=== PATIENT | female | born 1985 | race Caucasian/White ===

== ENCOUNTER 2022-03-04 10:00 | Day surgery (SDC) | payer OTHER ==
[~2022-03-04] VITALS: Ht 154.9 cm; Wt 51.8 kg
--- NOTE | ~2022-03-04 | OR ---
[facility] [address] [place] [address] [place], [place] [address] Draft DATE OF OPERATION: 03/04/2022 SURGEON: Aron Mancilla MD The patient of Dr. Mancilla. PREOPERATIVE DIAGNOSIS: Endometrial polyp, cervical stenosis. POSTOPERATIVE DIAGNOSIS: Endometrial polyp, cervical stenosis. PROCEDURE: Failed hysteroscopy. ANESTHESIA: MAC. ESTIMATED BLOOD LOSS: 10 mL. SPECIMEN: None. DRAINS: None. PACKING: None. FINDINGS: Normal vagina, cervix normal in appearance and normal-appearing external os, but the internal os was completely stenotic and no visible or palpable endocervical canal identifiable. COMPLICATIONS: Unable to enter endometrial cavity. DESCRIPTION OF PROCEDURE: The patient was brought to the operating room, placed supine position. After adequate PATIENT NAME: JUDY PACHECO OPERATIVE REPORT DATE OF : 81 REPORT #: [id number] PHYSICIAN: ARON MANCILLA MD PCP: BINU ZEPEDA MD REPORT IS CONFIDENTIAL AND NOT TO BE RELEASED WITHOUT AUTHORIZATION [facility] [address] [place] [address] [place], [place] [address] Draft MAC was obtained, the patient was brought to the operative room and after adequate MAC obtained, was placed in dorsal lithotomy position, prepped and draped in usual sterile fashion. Bladder was drained with straight catheterization and then the weighted speculum placed in the vagina. The anterior lip of the cervix was identified. Anterior lip of the cervix was grasped with an Allis clamp and then small cervical dilator was placed in the external os. An attempt was made to insert this through the internal os and the uterus. After several attempts, no palpable opening could be found, so the hysteroscope was placed in the external os of the cervix and attempt was made to dilate the cervix with water pressure from the hysteroscopy. The external os would dilate, but again the internal os would not dilate and even with the hysteroscope in the endocervical canal, no continuation of the endocervical canal could be seen. The hysteroscope was removed. A 2nd attempt made to find the opening with the small dilator. Again, no opening was found and the hysteroscope tried. Again 2nd time carefully examining the endocervical canal and attempting dilation with water pressure, but the cervical canal appeared to blindly end with no evidence of an opening. At this stage, the risk of perforation of the uterus seem to be increasing and so the procedure was terminated. All instruments were removed from the cervix. The cervix was observed and noted to have good hemostasis. All instruments were removed from the vagina. The patient tolerated the procedure well, went to recovery room in good condition. The sponge and instrument counts were correct at the end of procedure. MD REZA Mcgee/CLAYTON /[id number] Copies: ~ PATIENT NAME: JUDY PACHECO OPERATIVE REPORT DATE OF : 81 REPORT #: [id number] PHYSICIAN: ARON MANCILLA MD PCP: BINU ZEPEDA MD REPORT IS CONFIDENTIAL AND NOT TO BE RELEASED WITHOUT AUTHORIZATION
[~2022-03-04 10:00] MED LIST: MULTI VITAMIN1 EACH PO; OSTERA TABLET1 EACH PO
--- NOTE | 2022-03-04 13:42 | NUR ---
03/04/22 1342 Jonathan,Marii 1335 PT ARRIVED TO PACU ON 6L VIA MASK, PT ASLEEP AND RESP EVEN AND UNLABORED. 1340 O2 MASK REMOVED, O2 SAT 100%.
--- NOTE | 2022-03-04 15:33 | NUR ---
1515 RETURNED ON STRETCHER TO RM 3 FOR VOMITING, RETCHING CONTINUOUSLY. PHENERGAN 6.25 GIVEN JERRISep.
--- NOTE | 2022-03-04 16:01 | NUR ---
SLEPT A LITTLE AFTER PHENERGAN. NO RETCHING. UP TO BR. NO REWTCHING WANTS TO GO HOME.
== END 2022-03-04 16:05 | disposition home or self-care (01) ==
LOC: OPS 10:00 → DS 10:00 → OPS 11:45 → DS 13:00 → OPS 13:00
PROVIDERS: ATTEND General Practice
PROC: 0UJD8ZZ Inspection of Uterus and Cervix, Via Natural or Artificial Opening Endoscopic (ICD-10-PCS; 2022-03-04)
PROC: 0UDB8ZX Extraction of Endometrium, Via Natural or Artificial Opening Endoscopic, Diagnostic (ICD-10-PCS; principal; 2022-03-04 11:45)
DX: N84.0 Polyp of corpus uteri (principal); N88.2 Stricture and stenosis of cervix uteri; Z53.8 Procedure and treatment not carried out for other reasons
CPT/HCPCS: J1100; J1885; J2001; J2250; J2405; J2550; J2704; J7121

== ENCOUNTER 2023-04-07 11:01 | Inpatient (IN) | payer OTHER ==
[~2023-04-07] VITALS: Ht 152.4 cm; Wt 65.3 kg
--- NOTE | ~2023-04-07 | OR ---
[facility] [address] [place] [id number] Draft DATE OF OPERATION: 05/03/2023 SURGEON: Sharla Hawkins DO PREOPERATIVE DIAGNOSES: 1. Intrauterine at 39 weeks gestation. 2. Surrogate . 3. History of prior . 4. Advanced maternal age. POSTOPERATIVE DIAGNOSES: 1. Intrauterine at 39 weeks gestation. 2. Surrogate . 3. History of prior . 4. Advanced maternal age. PROCEDURE PERFORMED: Repeat low transverse delivery. ANESTHESIA: Spinal with postoperative TAP block. ELECTROMECHANICAL INSPECTOR: Aleiad Valderrama MD. COMPLICATIONS: None. ESTIMATED BLOOD LOSS: 500 mL. DRAINS: Carson to gravity. FINDINGS: Delivery of viable male in the RASHEEDA position via repeat low transverse incision. Normal uterus, tubes, and ovaries. Minimal scarring of the rectus to the fascia and no significant intra-abdominal or pelvic adhesions noted. INDICATIONS: PATIENT NAME: JUDY SPRINGER OPERATIVE REPORT DATE OF : 81 REPORT #: [id number] PHYSICIAN: SHARLA HAWKINS (DANO) PCP: BINU ZEPEDA MD REPORT IS CONFIDENTIAL AND NOT TO BE RELEASED WITHOUT AUTHORIZATION [facility] [address] [place] [id number] Draft Mrs. Tena Hermosillo is a very pleasant 37-year-old G2, P1 with IUP at 39 weeks gestation, who presents for repeat low transverse delivery. complicated by advanced maternal age, prior , and surrogate . The patient desires repeat low transverse delivery. Risks, benefits, and alternatives were discussed in detail with the patient. The patient understands and wished to proceed with the procedure. TECHNIQUE: The patient was taken to the operative room where a time-out was performed to confirm correct patient and correct procedure. Spinal anesthesia was adequately established and the patient was prepped in the supine position with a bump under the right hip. Carson catheter was inserted and the patient received 2 g of Ancef preoperatively per SCIP protocol. Heparin not indicated. Once spinal was noted to be adequate, a Pfannenstiel skin incision was made through the prior scar and carried down to the fascia. The fascia was nicked in the midline. Fascial incision was extended bilaterally using curved Harrison scissors. The fascia was grasped with Raina's, elevated and the underlying rectus dissected off bluntly and sharply. The rectus was then divided in the midline and the peritoneum was entered bluntly. Peritoneal incision was extended cephalad caudad using sharp and blunt dissection. An Louis self retractor was placed in the abdomen and the lower uterine segment identified. Hysterotomy was performed using a surgical scalpel with the assistance of Allis-Charleston clamps. Amnion was ruptured for clear fluid and hysterotomy was extended bilaterally using blunt dissection. The surgeon's hand was placed in the uterine cavity and the head elevated into the abdomen and delivered with the assistance of fundal pressure. No nuchal cord was identified and the remainder of the was delivered without complication. was vigorous and cried at delivery. Cord was doubly clamped and cut and the handed to waiting pediatric team for further care. Cord blood was obtained for routine analysis. The placenta was manually expressed, intact with a centrally inserted three-vessel cord. The uterus was cleared of any remaining products of conception and clots and the hysterotomy was repaired using 0 Monocryl in two layers, the 1st being a running locked layer and the 2nd being a running imbricated layer in the vertical manner. Excellent hemostasis and imbrication was appreciated. The pelvis was irrigated and found to be hemostatic. The tubes and ovaries were examined and found to be normal. The Louis retractor was removed and the peritoneum was reapproximated using 2-0 Vicryl in a running nonlocked manner. Rectus was made hemostatic with judicious use of Bovie electrocautery and was loosely plicated in the midline with three interrupted sutures of 0 Vicryl. Gonzalo was applied to the rectus sheath. The fascia was then reapproximated using 0 Vicryl in a running nonlocked manner. Subcu was reapproximated using 3-0 Vicryl in a running, nonlocked stitch and the skin was then reapproximated using surgical yomi. The uterus was Crede'd for scant amount of blood and the patient remained in the PACU for postoperative TAP blocks per Anesthesia. PATIENT NAME: JUDY SPRINGER OPERATIVE REPORT DATE OF : 81 REPORT #: [id number] PHYSICIAN: SHARLA HAWKINS (DANO) PCP: BINU ZEPEDA MD REPORT IS CONFIDENTIAL AND NOT TO BE RELEASED WITHOUT AUTHORIZATION [facility] [address] [place] [address] [place], [place] [address] Draft Sponge, needle, and instrument count was correct x2 at the end of procedure. Dr. Valderrama was present and participated in all portions of the procedure. Sharla Hawkins DO JALIYAH/DAVIDL /[id number] Copies: ~ PATIENT NAME: JUDY SPRINGER OPERATIVE REPORT DATE OF : [birth year] REPORT #: [id number] PHYSICIAN: SHARLA HAWKINS (DANO) PCP: BINU ZEPEDA MD REPORT IS CONFIDENTIAL AND NOT TO BE RELEASED WITHOUT AUTHORIZATION
[~2023-04-07 11:01] MED LIST changes: +BAYER CHEWABLE81 MG PO; +DELESTROGE10 MG/1 ML IM; +PROGESTERO50 MG/1 M1 IM; +PROGESTERONE200 MG PV; +VITAMIN D325 MCG PO
[2023-05-03 05:51] VITALS: BP 170/77
[2023-05-03 06:00] LABS: HEMATOCRIT 37.4 % (35.0-50.0); MCH 25.1 (27-36); MCHC 32.2 g/dl (30-36); MCV 77.8 fl (81-99); RBC 4.8 M/ul (4.3-5.7); RDW 15.4 (10.5-15.0)
[2023-05-03 06:12] LABS: INFLUENZA B NAA NEGATIVE (NEGATIVE); RESPIRATORY SYNCYTIAL VIR NAA NEGATIVE (NEGATIVE)
[2023-05-03 06:45] LABS: ABO O; ANTIBODY SCREEN NEGATIVE; RH POSITIVE
[2023-05-03 07:18] LABS: AMPHETAMINES, URINE NEGATIVE (NEGATIVE); BARBITURATES, URINE NEGATIVE (NEGATIVE); BENZODIAZEPINE, URINE NEGATIVE (NEGATIVE); BUPRENORPHINE, URINE NEGATIVE (NEGATIVE); CANNABINOID, URINE NEGATIVE (NEGATIVE); COCAINE, URINE NEGATIVE (NEGATIVE); ECSTASY, URINE NEGATIVE (NEGATIVE); FENTANYL, URINE NEGATIVE (NEGATIVE); METHADONE, URINE NEGATIVE (NEGATIVE); OPIATES, URINE NEGATIVE (NEGATIVE); OXYCODONE, URINE NEGATIVE (NEGATIVE); PHENCYCLIDINE, URINE NEGATIVE (NEGATIVE)
--- NOTE | 2023-05-03 08:37 | NUR ---
05/03/23 0837 Hina Larios 0893-PATIENT ARRIVED BACK TO [facility] FOR RECOVERY. PATIENT AWAKE DENIES PAIN OR NAUSEA. SR. IVF INFUSING TO RIGHT HAND LR WITH 20 PITOCIN. . FUNDUS FIRM AT UMBILICUS MORE TOWARDS RIGHT SIDE SEO CATHETER DRAINING YELLOW URINE. DRESSING CDI. LIGHT RUBRA DRAINAGE ON IRMA PAD. FAMILY AT BEDSIDE. RA 97% RR EVEN
[2023-05-03 09:03] VITALS: BP 123/76
[2023-05-04 05:33] LABS: HEMATOCRIT 29.1 % (35.0-50.0); HEMOGLOBIN 9.3 g/dL (12.0-18.0); MCH 25.2 (27-36); MCV 78.7 fl (81-99); RBC 3.7 M/ul (4.3-5.7); RDW 15.4 (10.5-15.0)
--- NOTE | 2023-05-04 07:00 | PR ---
[facility] [address] [place], [place] [address] Signed PP Progress Notes Datetime Report Generated by CPN: 05/04/2023 07:00 SUBJECTIVE: [id number] Pain: Within Normal Limits Nausea/Vomiting: Denies Flatus: Yes Bowel Movement: No Vital Signs: [id number] Vital Signs: Reviewed; Within Normal Limits EXAM: Ongoing Cardiovascular: Normal Respiratory: Normal Abdomen/Uterus: Normal Lochia: Normal Vulva/Perineum: Not Done Breasts: Not Done CVA Tenderness: Normal Extremities: Normal Incision: Normal Progress: Not Applicable Exam Comments: Fundus firm U-2 nontender. Incision healing well w/ small amount of dried blood on bandaging. IMPRESSION/PLAN/PROCEDURES: [id number] Impression: Normal Progression Plan: Continue Present Management Progress Notes: Pt seen and examined. Doing well. Ambulating and tolerating full diet. Carson out this AM. Some increased pp pain but pt declines opioids. Would like to continue trying multimodal therapy w/out opioids, but is open if pain worsens. No fevers/chills or other concerns. Anticipate d/c home tomorrow. Signing Physician: Sharla Hawkins DO Copies: ~ *Electronically Signed* 05/04/23 0700 SHARLA HAWKINS (DANO) DO PATIENT NAME: JUDY SPRINGER PROGRESS NOTE DATE OF : 81 PHYSICIAN: SHARLA HAWKINS (JD) DO RPT #: [id number] REPORT IS CONFIDENTIAL AND NOT TO BE RELEASED WITHOUT AUTHORIZATION
--- NOTE | 2023-05-04 11:52 | NUR ---
PT APPEARED TO BE SLEEPING. DID NOT DISTURB. PRAYED FOR HEALING AND ONGOING PEACE AND COMFORT.
--- NOTE | 2023-05-04 18:09 | PR ---
[facility] [address] [facility] [place], [place] [address] Signed PP Progress Notes Datetime Report Generated by CPN: 05/04/2023 18:09 SUBJECTIVE: [id number] Pain: Within Normal Limits Nausea/Vomiting: Denies Flatus: Yes Bowel Movement: No Vital Signs: [id number] Vital Signs: Reviewed; Within Normal Limits EXAM: Ongoing Cardiovascular: Normal Respiratory: Normal Abdomen/Uterus: Normal Lochia: Normal Vulva/Perineum: Not Done Breasts: Not Done CVA Tenderness: Normal Extremities: Normal Incision: Normal Progress: Not Applicable Exam Comments: Fundus firm U-2 nontender IMPRESSION/PLAN/PROCEDURES: [id number] Impression: Normal Progression Plan: Discharge Progress Notes: Pt seen and examined. Doing well. Ambulating, voiding, and tolerating full diet. Pain controlled well w/ tylenol and ibuprofen. Desires d/c home today. No questions or concerns. Pt reports she had a very good experience and is grateful for the care she received. Reviewed d/c instructions and medications in detail. All questions answered. Signing Physician: Sharla Hawkins DO Copies: ~ *Electronically Signed* 05/04/23 5316 SHARLA HAWKINS (DANO) DO PATIENT NAME: JUDY SPRINGER PROGRESS NOTE DATE OF : 81 PHYSICIAN: SHARLA HAWKINS (JD) DO RPT #: [id number] REPORT IS CONFIDENTIAL AND NOT TO BE RELEASED WITHOUT AUTHORIZATION
== END 2023-05-04 19:15 | disposition home or self-care (01) | DRG 788 ==
LOC: FBC 05-03 04:58
PROVIDERS: ADMIT Obstetrics & Gynecology; ATTEND Obstetrics & Gynecology
PROC: 10D00Z1 Extraction of Products of Conception, Low, Open Approach (ICD-10-PCS; principal; 2023-05-03 07:30)
DX: O34.211 Maternal care for low transverse scar from previous cesarean delivery (principal); Z3A.39 39 weeks gestation of pregnancy; Z37.0 Single live birth; O26.893 Other specified pregnancy related conditions, third trimester; L29.9 Pruritus, unspecified; Z20.822 Contact with and (suspected) exposure to COVID-19
CPT/HCPCS: 01961; 36415; 76942; 80307; 85027; 86850; 86900; 86901; 87502; A9270; J0690; J1100; J1885; J2001; J2371; J2405; J2590; J2795; J7121; U0002